=== PATIENT | male | born 1955 | race Caucasian/White ===

== ENCOUNTER → 2016-11-15 | Outpatient (CLI) | payer BC ==
[~2016-11-15] MED LIST: ACETAMINOPHEN1 EACH PO; ALEVE220 M1 PO; BETIMOL5 ML OPHTH; CELEBREX200 MG PO; COLACE100 MG PO; DILAUDID 2MG(HYD2 MG PO; EX-LAX MAXIMUM25 MG PO; LEVOTHROID (S125 MCG PO; LEVOTHROID(SY175 MCG PO; NEURONTIN300 MG PO; NORCO 5-325 MG1 TAB PO; PARCOPA PO; RESTASIS1 EACH OPHTH; SKELAXIN800 MG PO; SYSTANE ULTRA 010 ML OPTH; SYSTANE1 EACH OPHTH; TIMOPTIC 0.5%15 ML OPHTH; TRAMADOL HCL50 MG PO; TYLENOL/COD#31 TAB PO; VALIUM5 MG PO; VITAMIN D1000 UNIT PO; XARELTO10 MG PO; [UNRECOGNIZED DRUG - REMARK] PO
== END | disposition disaster alternative care site (69) ==
LOC: GRAD 11-14 10:00
DX: Z08 Encounter for follow-up examination after completed treatment for malignant neoplasm (principal); Z85.850 Personal history of malignant neoplasm of thyroid